=== PATIENT | female | born 1985 | race Two or more races ===

== ENCOUNTER 2019-12-30 07:24 | Emergency (ER) | payer SELFPAY ==
[~2019-12-30] VITALS: Ht 162.6 cm; Wt 100.0 kg
[2019-12-30 08:06] LABS: BILIRUBIN,URINE NEGATIVE (NEG); CLARITY,URINE CLEAR; COLOR,URINE YELLOW; NITRITE,URINE NEGATIVE (NEG); PH,URINE 5.5 (<5.0-8.0); PROTEIN,URINE NEGATIVE (NEG-TRACE)
[2019-12-30 08:32] LABS: AMORPHOUS SEDIMENT,UR PRESENT /HPF; BACTERIA,URINE FEW /HPF (0-FEW); RBC,URINE 0 /HPF (0-2); SQUAMOUS EPITHELIAL CELL,UR MOD /LPF
[2019-12-30 08:46] VITALS: BP 131/79
[2019-12-30] MEDS ORDERED: ORPH100T PO (09:09)
[2019-12-30] MEDS ORDERED: NAPR-826 PO (09:09)
--- NOTE | 2019-12-30 09:09 | PHYS DOC ---
Past Medical History Past Medical History: No Pertinent History Past Surgical History: No Surgical History Smoking Status: Never Smoker Alcohol Use: None General Adult EDM: Chief Complaint: LOWER BACK PAIN OR INJURY HPI: HPI: Patient is a 34-year-old female presenting to the ED with acute low back pain that started last night. Patient describes the pain as tight and located on both sides of her low back. 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 Patient denies any motor weakness or sensory changes, trouble urinating. Patient rates the pain at a 8 out of 10 which is made better by sitting straight or lying flat, and is made worse by walking, bending over, and physical activity. Patient has not taken anything for pain. Patient denies any COVID contacts or COVID symptoms. Review of Systems: Review of Systems: Constitutional: Denies fever or chills Eyes: Denies redness or eye pain HENT: Denies nasal congestion or sore throat Respiratory: Denies cough or shortness of breath Cardiovascular: Denies chest pain or palpitations GI: Denies abdominal pain, nausea, or vomiting : Denies dysuria or hematuria Musculoskeletal: Endorses back pain or denies joint pain Integument: Denies rash or skin lesions Neurologic: Denies headache, focal weakness or sensory changes Complete systems were reviewed and found to be within normal limits, except as documented in this note. Current Medications: Current Medications Medications (Trade) Dose Ordered Sig/[facility] Start Time Stop Time Status Last Admin Dose Admin Ketorolac Tromethamine (Toradol 30mg Vial) 30 mg 1X ONCE 12/30/19 09:15 12/30/19 09:16 UNV Allergies: Allergies: Allergies Coded Allergies Type Severity Reaction Last Updated Verified No Known Drug Allergies 12/30/19 No Physical Exam: PE: Constitutional: Well developed, well nourished, no acute distress, non-toxic appearance HENT: Normocephalic, atraumatic Eyes: PERRL, EOMI, conjunctiva normal, no discharge Neck: Normal range of motion, no tenderness, supple Lungs & Thorax: Bilateral breath sounds clear to auscultation, no wheezing Abdomen: Soft, no tenderness Skin: Warm, dry, no erythema, no rash Back: Tenderness to palpation of lumbar paraspinal musculature, no bony tenderness, no SI joint tenderness Extremities: 5 out of 5 lower extremity muscle strength bilaterally, no sensory deficits. Negative straight leg raise test. Negative Aureliano test. Neurologic: Alert and oriented X 3, normal motor function, normal sensory function, no focal deficits noted Psychologic: Affect normal, judgment normal Current Patient Data: Labs: Laboratory Tests Test 12/30/19 07:35 12/30/19 07:39 Urine Collection Type Void Urine Color Yellow Urine Clarity Clear Urine pH 5.5 (<5.0-8.0) Urine Specific [place] 1.020 (1.000-1.030) Urine Protein Negative mg/dL (NEG-TRACE) Urine Glucose (UA) Negative mg/dL (NEG) Urine Ketones (Stick) Negative mg/dL (NEG) Urine Blood Negative (NEG) Urine Nitrite Negative (NEG) Urine Bilirubin Negative (NEG) Urine Urobilinogen Dipstick 1.0 mg/dL (0.2 mg/dL) Urine Leukocyte Esterase Negative (NEG) Urine RBC 0 /HPF (0-2) Urine WBC 1-4 /HPF (0-4) Urine Squamous Epithelial Cells Mod /LPF Urine Amorphous Sediment Present /HPF Urine Bacteria Few /HPF (0-FEW) Urine Mucus Mod /LPF POC Urine HCG, Qualitative Hcg negative (Negative) Vital Signs: Vital Signs Date Time Temp Pulse Resp B/P (MAP) Pulse Ox O2 Delivery O2 Flow Rate FiO2 12/30/19 08:46 97.5 77 18 131/79 (96) 100 Room Air 97.5 Course & Med Decision Making: Course & Med Decision Making Pertinent Labs and Imaging studies reviewed. (See chart for details) Patient is a 34-year-old female presenting with acute low back pain that started last night. Patient denies a history of trauma and there is no motor or sensory deficits and no bony tenderness to palpation. Patient most likely has a lumbar paraspinal muscle strain due to active physical labor. Patient states she is an 8 out of 10 pain and has not taken any medications for alleviation. Patient's urinalysis was normal. Patient will receive ketorolac 30 mg IM once in the ED. Patient will be discharged home with orphenadrine and naproxen for pain management at home. Patient prefers discharge instructions in Hungarian. Patient was counseled on the importance of proper lifting technique. Patient stable for discharge with outpatient follow-up with PCP. Discussed findings and plan with patient, who acknowledges understanding and agreement. [place] Disclaimer: Dragon Disclaimer: This electronic medical record was generated, in whole or in part, using a voice recognition dictation system. Departure Departure Impression: Primary Impression: Lumbar back pain Disposition: 01 HOME, SELF-CARE Condition: STABLE Referrals: NO PCP (PCP) Patient Instructions: Back Pain, Adult, [id number] Scripts Orphenadrine Citrate (ORPHENADRINE CITRATE) 100 Mg Tablet.er 100 MG PO BID PRN for MUSCLE PAIN, #14 TAB Prov: KASH BADILLO DO 12/30/19 Naproxen (EC-Naproxen) 375 Mg Tablet.dr 375 MG PO TID PRN PRN for PAIN, #20 TAB.SR Prov: KASH BADILLO DO 12/30/19 Justicifation of Admission Dx: Justifications for Admission: Justification of Admission Dx: N/A KASH BADILLO DO Dec 30, 2019 09:09
[2019-12-30] MEDS ORDERED: KETOROLAC 30 MG/ML VIAL. IM ONE (09:15)
== END 2019-12-30 09:35 | disposition home or self-care (01) ==
LOC: ER 07:24
DX: M54.5 Low back pain (principal)
CPT/HCPCS: 81001; 81025; 96372; 99283; J1885